=== PATIENT | male | born 1940 | race African-American/Black ===

== ENCOUNTER 2022-09-02 09:01 | Outpatient (CLI) | payer MEDICARE | END 2022-09-02 09:02 | disposition home or self-care (01) | LOC: CSHWCC 09:01 | PROVIDERS: ATTEND Nurse Practitioner Family | DX: T81.89XD Other complications of procedures, not elsewhere classified, subsequent encounter (principal) | CPT/HCPCS: 87070; 87205; 97605 ==

== ENCOUNTER 2022-09-16 08:49 | Outpatient (CLI) | payer MEDICARE | END 2022-09-16 08:50 | disposition home or self-care (01) | LOC: CSHWCC 08:49 | PROVIDERS: ATTEND Nurse Practitioner Family | DX: T81.89XD Other complications of procedures, not elsewhere classified, subsequent encounter (principal) ==

== ENCOUNTER 2022-09-30 08:21 | Outpatient (CLI) | payer MEDICARE | END 2022-09-30 08:22 | disposition home or self-care (01) | LOC: CSHWCC 08:21 | PROVIDERS: ATTEND Nurse Practitioner Family | DX: T81.89XD Other complications of procedures, not elsewhere classified, subsequent encounter (principal) ==

== ENCOUNTER 2022-10-16 08:53 | Outpatient (CLI) | payer MEDICARE | END 2022-10-16 08:54 | disposition home or self-care (01) | LOC: CSHWCC 08:53 | PROVIDERS: ATTEND Nurse Practitioner Family | DX: T81.89XD Other complications of procedures, not elsewhere classified, subsequent encounter (principal) | CPT/HCPCS: 11300; 88305 ==

== ENCOUNTER 2022-11-05 08:58 | Outpatient (CLI) | payer MEDICARE | END 2022-11-05 08:59 | disposition home or self-care (01) | LOC: CSHWCC 08:58 | PROVIDERS: ATTEND Nurse Practitioner Family | DX: T81.89XD Other complications of procedures, not elsewhere classified, subsequent encounter (principal) ==

== ENCOUNTER 2022-11-27 09:03 | Outpatient (CLI) | payer MEDICARE | END 2022-11-27 09:04 | disposition home or self-care (01) | LOC: CSHWCC 09:03 | PROVIDERS: ATTEND Nurse Practitioner Family | DX: L98.492 Non-pressure chronic ulcer of skin of other sites with fat layer exposed (principal) | CPT/HCPCS: 97139; G0463; 99213 ==

== ENCOUNTER 2022-12-25 09:18 | Outpatient (CLI) | payer MEDICARE | END 2022-12-25 09:19 | disposition home or self-care (01) | LOC: CSHWCC 09:18 | PROVIDERS: ATTEND Nurse Practitioner Family | DX: L98.492 Non-pressure chronic ulcer of skin of other sites with fat layer exposed (principal) ==